=== PATIENT | female | born 1990 | race Caucasian/White ===

== ENCOUNTER → 2022-12-08 | Outpatient (CLI) | payer OTHER | LOC: DIA.ED 09:19 | DX: O24.419 Gestational diabetes mellitus in pregnancy, unspecified control (principal) | CPT/HCPCS: G0108 ==

== ENCOUNTER → 2022-12-21 | Outpatient (CLI) | payer OTHER | LOC: DIA.ED 08:06 | DX: O24.419 Gestational diabetes mellitus in pregnancy, unspecified control (principal) ==

== ENCOUNTER 2023-02-15 09:15 | Inpatient (IN) | payer OTHER ==
[2023-02-15] VITALS (16 sets, daily range): BP systolic 89–107; BP diastolic 50–74; PULSE 68–98; TEMP 98.2
[~2023-02-15] VITALS: Ht 152.4 cm; Wt 90.5 kg
[~2023-02-15 09:15] MED LIST: PRENATAL TABLET PO
[2023-02-15 10:03] LABS: BASO % 0.4 % (0.0-2.0); EOS % 0.5 % (0.0-4.0); GRAN # 5.5 K/mm3 (1.4-6.5); GRAN % 73.3 % (42.2-75.2); HEMOGLOBIN 12.6 g/dl (12.5-16.0); LYMPH # 1.3 K/mm3 (1.2-3.4); LYMPH % 17.4 % (20.0-51.0); MEAN CELL VOLUME 88 fl (80.0-100.0); MEAN CORPUSCULAR HEMOGLOBIN 30 pg (27-31); MEAN CORPUSCULAR HGB CONC 34 g/dl (33.0-37.0); MEAN PLATELET VOLUME 11.5 fl (7.4-10.4); MONO # 0.6 K/mm3 (0.1-0.6); MONO % 7.9 % (1.7-9.3); PLATELET COUNT 203 K/mm3 (130-400); REDCELL DISTRIBUTION WIDTH-CV 13.7 % (11.5-14.5)
[2023-02-15 10:14] LABS: HEMATOCRIT 36.8 % (37.0-47.0)
--- NOTE | 2023-02-15 18:06 | NUR ---
Tefla of abdominal dressing 50% saturated, large spot on right side, other spot on left of center. Dressing replaced with abdominal pad, incision c/d/i, no active bleeding noted at this time. Pt then up to bathroom, catheter removed, pericare done, panties and pad placed, clean gown provided, binder on. Pt tolerated very well, ambulated around room, then back in bed.
--- NOTE | 2023-02-15 19:39 | NUR ---
ASSISTED WITH WITH A NIPPLE SHIELD TO RIGHT SIDE. BABY LATCHES ON WITH HELP.
[2023-02-16 01:17] VITALS: BP 92/51; PULSE 73; TEMP 98
--- NOTE | 2023-02-16 01:24 | NUR ---
0100 PATIENT HAD DONE 3 VOIDS PER PROTICAL INT REMOVED. SITE WITHOUT REDNESS OR SWELLING. PATIENT TOLERATED WELL.
[2023-02-16 07:54] VITALS: BP 98/52; PULSE 75; TEMP 98.3
[2023-02-16 16:31] VITALS: BP 89/56; PULSE 80; TEMP 98.4
[2023-02-16 18:40] VITALS: BP 90/59; PULSE 83
[2023-02-16 20:50] VITALS: TEMP 98
[2023-02-17 06:34] VITALS: BP 114/64; PULSE 75; TEMP 98.3
[2023-02-17] MEDS ORDERED: IBU800 M1 PO (09:13)
[2023-02-17] MEDS ORDERED: TYLENOL 500MG500 MG PO (09:14)
== END 2023-02-17 12:07 | disposition home or self-care (01) | DRG 788 ==
LOC: OB 09:15
PROVIDERS: ADMIT Student in an Organized Health Care Education/Training Program
PROC: 10D00Z1 Extraction of Products of Conception, Low, Open Approach (ICD-10-PCS; principal; 2023-02-15)
DX: O32.1XX0 Maternal care for breech presentation, not applicable or unspecified (principal); Z3A.39 39 weeks gestation of pregnancy; Z37.0 Single live birth; O99.214 Obesity complicating childbirth; O99.344 Other mental disorders complicating childbirth; F41.9 Anxiety disorder, unspecified; O24.420 Gestational diabetes mellitus in childbirth, diet controlled; O34.03 Maternal care for unspecified congenital malformation of uterus, third trimester; Q51.810 Arcuate uterus; Z23 Encounter for immunization
CPT/HCPCS: J0690; J1100; J1885; J2175; J2405; J2590; J7120